=== PATIENT | male | born 1990 | race Caucasian/White ===

== ENCOUNTER 2017-04-04 04:20 | Emergency (ER) | payer OTHER ==
[~2017-04-04] VITALS: Ht 182.9 cm; Wt 97.0 kg
[~2017-04-04 04:20] MED LIST: CITA10TA72
[2017-04-04 04:22] VITALS: Ht 182.9 cm; Wt 97.0 kg
[2017-04-04] MEDS ORDERED: DIPHENHYDRAMINE 25 MG CAP PO ONE (04:30)
[2017-04-04] MEDS ORDERED: IBUPROFEN 600 MG TAB PO ONE (04:30)
[2017-04-04] MEDS ORDERED: predniSONE 20 MG TAB PO ONE (04:30)
[2017-04-04] MEDS ORDERED: FAMOTIDINE 20 MG TAB PO ONE (04:30)
[2017-04-04] MEDS ORDERED: BEN25 PO (04:55)
[2017-04-04] MEDS ORDERED: PRED20TA PO (04:55)
[2017-04-04] MEDS ORDERED: IBUP-1542 PO (04:55)
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
== END 2017-04-04 05:13 | disposition home or self-care (01) ==
LOC: FTE 04:20
DX: L29.9 Pruritus, unspecified (principal); F17.210 Nicotine dependence, cigarettes, uncomplicated
CPT/HCPCS: J7512; Z7502; Z7610; 99283